=== PATIENT | male | born 2000 | race Hispanic/Latino ===

== ENCOUNTER 2021-03-28 16:38 | Emergency (ER) | payer OTHER ==
--- OUTSIDE RECORDS SUMMARY | 2021-03-28 16:42 | XMS REPORT | Continuity of Care Document ---
:[address] [facility] t Address [address] [place] [address] [place] [id number] Care Team Providers Name Role Phone Unavailable Unavailable Unavailable Problems This patient has no known problems. Allergies, Adverse Reactions, Alerts This patient has no known allergies or adverse reactions. Medications This patient has no known medications. Procedures This patient has no known procedures. Results This patient has no known results.
[2021-03-28] MEDS ORDERED: LIDOCAINE 1% MPF 5 ML VIAL ONE (18:05)
--- NOTE | 2021-03-28 18:35 | EDPHYS ---
Physician Documentation [facility] Name: Adis Diaz Age: 21 yrs Sex: Male : 2000 Arrival Date: 03/28/2021 Time: 16:39 Bed 20 Private MD: ED Physician Shankar Lyon HPI: 03/28 18:01 This 21 yrs old Male presents to ER via EMS with complaints of Laceration. 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 The injury was accidental. The laceration(s) is(are) located on the dorsal aspect of distal phalanx of left thumb. Onset: The symptoms/episode began/occurred just prior to arrival. Associated signs and symptoms: The patient has no apparent associated signs or symptoms. The patient has not experienced similar symptoms in the past. The patient has not recently seen a physician. Historical: - Allergies: 16:48 No Known Allergies; ll1 - PMHx: 16:48 None; ll1 - PSHx: 16:48 None; ll1 - Immunization history:: Client reports having NOT received the Covid vaccine. Last tetanus immunization: unknown, Flu vaccine status is unknown. - Social history:: Smoking status: Patient denies any tobacco usage or history of. ROS: 18:01 Constitutional: Negative for fever, chills, and weight loss. kb 18:01 Skin: Positive for laceration(s), of the dorsal aspect of distal phalanx of left thumb. 18:01 All other systems are negative. Exam: 18:01 Constitutional: This is a well developed, well nourished patient who is awake, alert, kb and in no acute distress. Head/Face: Normocephalic, atraumatic. ENT: Moist Mucous membranes Respiratory: Respirations even and unlabored. No increased work of breathing, no retractions or nasal flaring. MS/ Extremity: Pulses equal, no cyanosis. Neurovascular intact. Full, normal range of motion. Neuro: Awake and alert, GCS 15, oriented to person, place, time, and situation. Moves all extremities. Normal gait. Psych: Awake, alert, with orientation to person, place and time. Behavior, mood, and affect are within normal limits. 18:01 Skin: injury, laceration(s), the wound is approximately 1.5 cm(s), of the dorsal aspect of distal phalanx of left thumb, that can be described as clean, no foreign body, irregular, without bleeding. Vital Signs: 16:46 BP 125 / 64; Pulse 81; Resp 17; Temp 98.5; Pulse Ox 97% ; Weight 52.16 kg; Pain 0/10; ll1 17:50 BP 126 / 73; Pulse 89; Resp 16; Pulse Ox 100% on R/A; zb 19:04 BP 149 / 78; Pulse 78; Resp 16; Pulse Ox 100% on R/A; zb Laceration: 18:32 Wound Repair of 1.5cm ( 0.6in ) subcutaneous laceration to dorsal aspect of distal kb phalanx of left thumb. Irregularly shaped.. Skin/tissue flap noted.. Distal neuro/vascular/tendon intact. Anesthesia: Wound infiltrated with 1 mls of 1% lidocaine. Wound prep: Moderate cleansing with betadine by me, Wound irrigation with saline by me. Skin closed with 3 5-0 Prolene using simple sutures and sterile technique. Patient tolerated well. MDM: 17:23 Patient medically screened. kb 18:00 Data reviewed: vital signs, nurses notes. Data interpreted: Pulse oximetry: on room air kb is 100 %. Interpretation: normal. 18:33 Counseling: I had a detailed discussion with the patient and/or guardian regarding: the kb historical points, exam findings, and any diagnostic results supporting the discharge/admit diagnosis, the need for outpatient follow up, a family practitioner, to return to the emergency department if symptoms worsen or persist or if there are any questions or concerns that arise at home. 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 Exp: zb 02/16/2022. Lot #: [id number]. } Route: IM; Site: right deltoid; 19:03 Follow up: Response: No adverse reaction zb Disposition Summary: 03/28/21 18:34 Discharge Ordered Location: Home kb Condition: Stable kb Diagnosis - Laceration without foreign body of left thumb without damage to nail kb Followup: kb - With: Emergency Department - When: As needed - Reason: Worsening of condition Followup: kb - With: Private Physician - When: 2 - 3 days - Reason: Recheck today's complaints, Continuance of care, Re-evaluation by your physician Discharge Instructions: - Discharge Summary Sheet kb - Laceration Care, Adult, [id number] kb Forms: - Medication Reconciliation Form kb - Thank You Letter kb - Antibiotic Education kb - Prescription Opioid Use kb Addendum: 03/30/2021 07:24 Co-signature as Attending Physician, Shankar Lyon MD I agree with the assessment and k dr plan of care. Signatures: Marge Handley, ADMINISTRATIVE SERVICES ASSISTANT-C ADMINISTRATIVE SERVICES ASSISTANT-Ckb Shankar Lyon MD MD kdr Garcia Moore RN RN ll1 Angelia Malone RN RN zb Corrections: (The following items were deleted from the chart) 03/28 18:33 18:01 Skin: Positive for laceration(s), of the left index finger, kb kb 18:33 18:01 Skin: injury, laceration(s), the wound is approximately 1 cm(s), of the left kb index finger, that can be described as clean, no foreign body, irregular, without bleeding, kb 18:34 18:01 The laceration(s) is(are) located on the left index finger, kb kb
--- NOTE | 2021-03-28 18:35 | ER ---
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 Bleeding controlled with dressing by EMS. <2 cm laceration to thumb. Coronavirus screen: Client denies travel out of the [place] in the last 14 days. At this time, the client does not indicate any symptoms associated with coronavirus-19. Ebola Screen: Patient denies travel to an Ebola-affected area in the 21 days before illness onset. Complicating Factors: There are no complicating factors for this patient. Initial Sepsis Screen: Does the patient meet any 2 criteria? No. Patient's initial sepsis screen is negative. Does the patient have a suspected source of infection? Yes: Skin breakdown/wound. Risk Assessment: Do you want to hurt yourself or someone else? Patient reports no desire to harm self or others. Onset of symptoms was March 28, 2021. 16:46 Method Of Arrival: EMS ll1 16:46 Acuity: BECKA 4 ll1 Historical: - Allergies: 16:48 No Known Allergies; ll1 - PMHx: 16:48 None; ll1 - PSHx: 16:48 None; ll1 - Immunization history:: Client reports having NOT received the Covid vaccine. Last tetanus immunization: unknown, Flu vaccine status is unknown. - Social history:: Smoking status: Patient denies any tobacco usage or history of. Screenin:47 Abuse screen: Denies threats or abuse. Denies injuries from another. Nutritional zb screening: No deficits noted. Tuberculosis screening: No symptoms or risk factors identified. Fall Risk None identified. Assessment: 17:47 General: Appears in no apparent distress. Behavior is calm, cooperative, appropriate zb for age. Pain: Complains of pain in left index finger. Neuro: Level of Consciousness is awake, alert, obeys commands, Oriented to person, place, time, situation. Cardiovascular: Patient's skin is warm and dry. Respiratory: Airway is patent Respiratory effort is even, unlabored, Respiratory pattern is regular, symmetrical. GI:. Derm: Skin is intact, is healthy with good turgor, Skin is dry, Skin is normal, Skin temperature is warm. Musculoskeletal: Range of motion: intact in all extremities. Injury Description: Laceration sustained to left index finger is clean, jagged, 0.5 to 2.5 cm long, bleeding moderately, was sustained 2-4 hours ago. is bleeding. 19:04 Reassessment: Patient appears in no apparent distress at this time. Patient and/or zb family updated on plan of care and expected duration. Pain level reassessed. Patient is alert, oriented x 3, equal unlabored respirations, skin warm/dry/pink. family at bedside. dressing wrapped. Vital Signs: 16:46 BP 125 / 64; Pulse 81; Resp 17; Temp 98.5; Pulse Ox 97% ; Weight 52.16 kg; Pain 0/10; ll1 17:50 BP 126 / 73; Pulse 89; Resp 16; Pulse Ox 100% on R/A; zb 19:04 BP 149 / 78; Pulse 78; Resp 16; Pulse Ox 100% on R/A; zb ED Course: 16:39 Patient arrived in ED. ds1 16:46 Arm band placed on. ll1 16:48 Triage completed. ll1 17:16 Marge Handley FNP-C [facility]. kb 17:16 Shankar Lyon MD is Attending Physician. kb 17:21 Angelia Malone RN is Primary Nurse. zb 17:21 Patient placed in an exam room, on a stretcher. bp 19:02 No provider procedures requiring assistance completed. Patient did not have IV access zb during this emergency room visit. 19:03 Patient has correct armband on for positive identification. Adult w/ patient. Pulse ox zb on. NIBP on. 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 Exp: zb 02/16/2022. Lot #: [id number]. } Route: IM; Site: right deltoid; 19:03 Follow up: Response: No adverse reaction zb Outcome: 18:34 Discharge ordered by . kurt 19:03 Discharged to home ambulatory. zb 19:03 Condition: stable 19:03 Discharge instructions given to patient, Instructed on discharge instructions, follow up and referral plans. Demonstrated understanding of instructions, follow-up care, Prescriptions given X 19:11 Patient left the ED. zb Signatures: Marge Handley, RIB TRIM SEPARATOR-C RIB TRIM SEPARATOR-Sparkle Chadwick ds1 Live Villar, RN RN bp Garcia Moore RN RN ll1 Angelia Malone RN RN zb Corrections: (The following items were deleted from the chart) 19:03 19:02 IV discontinued, intact, bleeding controlled, No redness/swelling at site. zb Pressure dressing applied, zb 19:05 19:03 Discharge instructions given to patient, Instructed on discharge instructions, zb follow up and referral plans. medication usage, Demonstrated understanding of instructions, follow-up care, medications, Prescriptions given X 1, zb
[2021-03-28] MEDS ORDERED: TETANUS & DIPHTHERIA TOX,ADULT 0.5 ML VIAL ONE (19:13)
[2021-03-28 19:47] VITALS: TEMP 98.5
[2021-03-28 19:49] VITALS: O2SAT 100
[2021-03-28 19:51] VITALS: BP 149/78
== END 2021-03-28 19:11 | disposition home or self-care (01) ==
LOC: ER 16:38
PROC: 0HQGXZZ Repair Left Hand Skin, External Approach (ICD-10-PCS; principal; 2021-03-28)
DX: S61.012A Laceration without foreign body of left thumb without damage to nail, initial encounter (principal); Z23 Encounter for immunization; W45.8XXA Other foreign body or object entering through skin, initial encounter; Y93.G1 Activity, food preparation and clean up
CPT/HCPCS: 90471; 90714; 99284